=== PATIENT | female | born 1960 | race Caucasian/White ===

== ENCOUNTER 2018-02-19 05:41 | Day surgery (SDC) | payer OTHER ==
[2018-02-19] MEDS ORDERED: PROPOFOL 20 ML (07:37)
[2018-02-19] MEDS ORDERED: CEFAZOLIN 1 GM INJ (07:37)
[2018-02-19] MEDS ORDERED: MIDAZOLAM 1 MG/ML 2 ML INJ (07:38)
[2018-02-19] MEDS ORDERED: FENTAnyl 50 MCG/ML VIAL (07:38)
[2018-02-19] MEDS: LIDOCAINE 1% (MPF) 30 ML INJ (07:57)
[2018-02-19] MEDS ORDERED: ACETAMINOPHEN 1000MG/100ML IV 100 ML (08:16)
[2018-02-19] MEDS ORDERED: METOCLOPRAMIDE 10 MG INJ (08:17)
[2018-02-19] MEDS ORDERED: DEXAMETHASONE 4 MG/ML 1 ML INJ (08:17)
[2018-02-19] MEDS ORDERED: ONDANSETRON 4 MG INJ (08:17)
[2018-02-19] MEDS ORDERED: KETOROLAC 30 MG INJ (08:17)
[2018-02-19] MEDS ORDERED: METOCLOPRAMIDE 10 MG INJ IV (08:30)
[2018-02-19] MEDS ORDERED: DIPHENHYDRAMINE 50 MG INJ IV (08:30)
[2018-02-19] MEDS ORDERED: FENTAnyl 50 MCG/ML VIAL IV ×3 (08:30)
[2018-02-19] MEDS ORDERED: hydrALAzine 20 MG INJ IV (08:30)
[2018-02-19] MEDS ORDERED: EPHEDrine SULFATE 50 MG/5 ML SYG IV (08:30)
[2018-02-19] MEDS ORDERED: LABETALOL HCL 20MG INJ IV (08:30)
[2018-02-19] MEDS ORDERED: HYDROmorphONE (0.2 MG/ML) 10ML SYG IV ×2 (08:30)
[2018-02-19] MEDS ORDERED: OXYCODONE/ACETAMINOPHEN (5/325) TAB PO ×2 (08:30)
[2018-02-19] MEDS ORDERED: MEPERIDINE 25 MG INJ IV (08:30)
[2018-02-19] MEDS: CEFAZOLIN 1 GM/50 ML (PMX) 50 ML IVPB (08:30)
[2018-02-19] MEDS: DEXAMETHASONE 4 MG/ML 1 ML INJ (08:55)
[2018-02-19] MEDS: BUPIVACAINE 0.5% (SDV) 30 ML INJ (08:56)
[2018-02-19] MEDS ORDERED: EPHEDrine SULFATE 50 MG/5 ML SYG (09:00)
[2018-02-19] MEDS: HYDROmorphONE (0.2 MG/ML) 10ML SYG IV (09:22)
[2018-02-19] MEDS: ONDANSETRON 4 MG INJ IV (09:23)
== END 2018-02-19 10:45 | disposition home or self-care (01) ==
LOC: SDS 05:41
DX: M21.612 Bunion of left foot (principal); I10 Essential (primary) hypertension
CPT/HCPCS: 28296; 71045; 88304; 88311; 93005

== ENCOUNTER 2018-09-15 05:55 | Day surgery (SDC) | payer OTHER ==
[2018-09-15] MEDS: CEFAZOLIN 1 GM/50 ML (PMX) 50 ML IVPB (07:45)
[2018-09-15] MEDS ORDERED: FENTAnyl 50 MCG/ML VIAL (07:46)
[2018-09-15] MEDS ORDERED: METOCLOPRAMIDE 10 MG INJ IV (08:00)
[2018-09-15] MEDS ORDERED: FENTAnyl 50 MCG/ML VIAL IV (08:00)
[2018-09-15] MEDS ORDERED: HYDROmorphONE 1 MG/5 ML IV SYRINGE IV (08:00)
[2018-09-15] MEDS ORDERED: ALBUTEROL 0.083% (NEB) 2.5 MG/3 ML AMP HHN (08:00)
[2018-09-15] MEDS ORDERED: ONDANSETRON 4 MG INJ IV (08:00)
[2018-09-15] MEDS ORDERED: DIPHENHYDRAMINE 50 MG INJ IV (08:00)
[2018-09-15] MEDS ORDERED: ROCURONIUM 50 MG INJ (08:06)
[2018-09-15] MEDS ORDERED: CEFAZOLIN 1 GM INJ (08:06)
[2018-09-15] MEDS ORDERED: LIDOCAINE 100 MG SYRINGE (08:06)
[2018-09-15] MEDS ORDERED: SUCCINYLCHOLINE CHLORIDE 100 MG/5 ML SYG IV (08:06)
[2018-09-15] MEDS ORDERED: SUGAMMADEX SODIUM 200 MG/2 ML VIAL IV (08:06)
[2018-09-15] MEDS ORDERED: PROPOFOL 20 ML (08:06)
[2018-09-15] MEDS: LIDOCAINE 1% (STERILE-PAK) 30 ML INJ (08:10)
[2018-09-15] MEDS: POLYMYXIN/BACITRACIN 1L IRRIG ×2 (08:20→09:36)
[2018-09-15] MEDS: DEXAMETHASONE 4 MG/ML 1 ML INJ (09:37)
[2018-09-15] MEDS: BUPIVACAINE 0.5% (SDV) 30 ML INJ (10:10)
[2018-09-15] MEDS: FENTAnyl 50 MCG/ML VIAL IV ×6 (10:46→12:21)
[2018-09-15] MEDS: HYDROmorphONE 1 MG/5 ML IV SYRINGE IV ×6 (10:46→12:22)
[2018-09-15] MEDS: MEPERIDINE 25 MG INJ IV (11:13)
== END 2018-09-15 13:40 | disposition home or self-care (01) ==
LOC: SDS 05:55
DX: M21.612 Bunion of left foot (principal); M21.622 Bunionette of left foot; I10 Essential (primary) hypertension
CPT/HCPCS: 28110; 71045; 73630-LT